=== PATIENT | female | born 1995 | race Caucasian/White ===

== ENCOUNTER 2019-05-08 14:23 | Observation (INO) | payer OTHER ==
[~2019-05-08] VITALS: Ht 160 cm; Wt 91.6 kg
[2019-05-08 14:32] VITALS: BP 110/62
--- NOTE | 2019-05-08 14:44 | NUR ---
PATIENT TRANSFERRED TO OB.
[2019-05-08 17:59] VITALS: BP 125/68
[2019-05-08] MEDS ORDERED: PREN-380 PO (18:02)
== END 2019-05-08 18:15 | disposition home or self-care (01) ==
LOC: MED 14:23 → MLD 14:27
PROVIDERS: ADMIT Obstetrics & Gynecology; ATTEND Obstetrics & Gynecology
DX: O36.8130 Decreased fetal movements, third trimester, not applicable or unspecified (principal); Z3A.28 28 weeks gestation of pregnancy
CPT/HCPCS: 76819; 99281; G0378; Q0092; 81000

== ENCOUNTER 2019-05-31 17:30 | Observation (INO) | payer OTHER ==
[~2019-05-31] VITALS: Ht 160 cm; Wt 93.4 kg
[~2019-05-31 17:30] MED LIST: PREN-380 PO
[2019-05-31 17:35] VITALS: BP 120/73
--- NOTE | 2019-05-31 17:42 | NUR ---
PT TAKEN VIA W/C TO L&D. REPORT GIVEN TO L&D NURSE.
[2019-05-31 18:29] VITALS: BP 112/55
[2019-05-31] MEDS ORDERED: BETAMETH ACET/BETAMETH NA PH 30 MG/5 ML VIAL IM SCH (20:00)
[2019-05-31] MEDS ORDERED: BETAMETH ACET/BETAMETH NA PH 30 MG/5 ML VIAL IM ONE (20:23)
[2019-05-31 20:40] LABS: APPEARANCE,URINE HAZY (CLEAR); BILIRUBIN,URINE NEGATIVE (NEGATIVE); BLOOD, URINE 3+ (NEGATIVE); COLOR,URINE YELLOW (YELLOW); LEUKOCYTE ESTERASE ,URINE 3+ (NEGATIVE); NITRITE, URINE NEGATIVE (NEGATIVE); UGLUCOSE NEGATIVE (NEGATIVE)
[2019-05-31 20:47] LABS: WBC,URINE 60-80 /HPF (0-5)
[2019-05-31 21:16] LABS: BASOPHILS % (AUTO) 0.3 % (0.0-2.0); EOSINOPHILS # (AUTO) 0.1 K/uL (0-0.4); EOSINOPHILS % (AUTO) 0.7 % (0.0-4.0); HEMATOCRIT 34.1 % (36-48); HEMOGLOBIN 11.2 g/dL (12.0-16.0); LYMPHOCYTES # (AUTO) 2.1 K/uL (2.5-16.5); LYMPHOCYTES % (AUTO) 21.5 % (20.5-51.1); MEAN CORPUSCULAR HEMOGLOBIN 28 pg (27-31); MEAN CORPUSCULAR HGB CONC 33 g/dL (33-37); MEAN CORPUSCULAR VOLUME 86.5 fL (80-94); MONOCYTES # (AUTO) 0.8 K/uL (0.8-1.0); MONOCYTES % (AUTO) 8.2 % (1.7-9.3); NEUTROPHILS # (AUTO) 6.8 K/uL (1.8-7.7); NEUTROPHILS % (AUTO) 69.3 % (42.2-75.2); PLATELET COUNT (AUTO) 235 K/uL (140-450); RED BLOOD CELL COUNT(AUTO) 3.94 MIL/uL (4.20-5.40); WHITE BLOOD COUNT (AUTO) 9.8 K/uL (4.8-10.8)
[2019-05-31 21:31] LABS: POTASSIUM 3.4 mmol/L (3.5-5.1)
[2019-05-31 21:32] LABS: CARBON DIOXIDE 23.4 mmol/L (21-32)
[2019-05-31 21:33] LABS: TOTAL BILIRUBIN 0.2 mg/dL (0.0-1.0)
[2019-05-31 21:34] LABS: ALBUMIN 2.3 g/dL (3.4-5.0)
[2019-05-31 21:35] LABS: CREATININE 0.5 mg/dL (0.6-1.3)
[2019-06-01] MEDS ORDERED: cefTRIAXone 1,000 MG in LIDOCAINE MPF 1% - 5 mL VIAL 2.1 ML IM SCH (10:30)
[2019-06-01] MEDS ORDERED: BETAMETH ACET/BETAMETH NA PH 30 MG/5 ML VIAL IM ONE (20:10)
== END 2019-06-01 20:30 | disposition home or self-care (01) ==
LOC: MED 17:30 → MLD 17:49 → INTOOBSV 17:49 → MFCC 20:00
PROVIDERS: ADMIT Obstetrics & Gynecology; ATTEND Obstetrics & Gynecology
DX: O26.893 Other specified pregnancy related conditions, third trimester (principal); R10.2 Pelvic and perineal pain; O23.43 Unspecified infection of urinary tract in pregnancy, third trimester; Z3A.32 32 weeks gestation of pregnancy
CPT/HCPCS: 36415; 80053; 81001; 85025; 86886; 86900; 86901; 87086; 96372; 99281; G0378; J0696; J0702; J2001

== ENCOUNTER 2019-07-14 14:46 | Observation (INO) | payer OTHER ==
[~2019-07-14] VITALS: Ht 157.5 cm; Wt 93.4 kg
[2019-07-14 15:56] LABS: BILIRUBIN,URINE NEGATIVE (NEGATIVE); BLOOD, URINE TRACE-I (NEGATIVE); COLOR,URINE YELLOW (YELLOW); LEUKOCYTE ESTERASE ,URINE 3+ (NEGATIVE); NITRITE, URINE NEGATIVE (NEGATIVE); PH,URINE 6.5 (5.0-9.0); UGLUCOSE NEGATIVE (NEGATIVE)
[2019-07-14 16:00] LABS: APPEARANCE,URINE HAZY (CLEAR)
[2019-07-14 16:20] VITALS: BP 106/59
[2019-07-14 17:29] LABS: RBC,URINE 0-5 /HPF (0-5)
== END 2019-07-14 17:25 | disposition home or self-care (01) ==
LOC: MLD 14:46
PROVIDERS: ADMIT Obstetrics & Gynecology; ATTEND Obstetrics & Gynecology
DX: O26.893 Other specified pregnancy related conditions, third trimester (principal); R10.2 Pelvic and perineal pain; Z3A.38 38 weeks gestation of pregnancy
CPT/HCPCS: 81001; 87086; G0378; 99284

== ENCOUNTER 2019-07-16 23:17 | Inpatient (IN) | payer OTHER ==
[~2019-07-16] VITALS: Ht 157.5 cm; Wt 93.4 kg
[2019-07-17] MEDS ORDERED: OXYTOCIN 10 UNITS/ML VIAL ONE (01:10)
[2019-07-17] MEDS ORDERED: LACTATED RINGERS 1,000 ML IV SCH (02:31)
[2019-07-17] MEDS ORDERED: CARBOPROST 250 MCG/ML AMP IM PRN ×2 (02:35→20:00)
[2019-07-17] MEDS ORDERED: OXYTOCIN 10 UNITS/ML VIAL IM SCH (02:35)
[2019-07-17] MEDS ORDERED: NALBUPHINE 10 MG/ML AMP IVP PRN (02:35)
[2019-07-17] MEDS ORDERED: METHYLERGONOVINE 0.2 MG/ML AMP IM PRN (02:35)
[2019-07-17 02:54] LABS: BASOPHILS # (AUTO) 0.1 K/uL (0.00-0.22); BASOPHILS % (AUTO) 0.5 % (0.0-2.0); EOSINOPHILS # (AUTO) 0.1 K/uL (0-0.4); EOSINOPHILS % (AUTO) 0.6 % (0.0-4.0); HEMATOCRIT 36.6 % (36-48); HEMOGLOBIN 11.8 g/dL (12.0-16.0); LYMPHOCYTES # (AUTO) 2.8 K/uL (2.5-16.5); LYMPHOCYTES % (AUTO) 19.8 % (20.5-51.1); MEAN CORPUSCULAR HEMOGLOBIN 28 pg (27-31); MEAN CORPUSCULAR HGB CONC 32 g/dL (33-37); MEAN CORPUSCULAR VOLUME 85.8 fL (80-94); MONOCYTES # (AUTO) 0.8 K/uL (0.8-1.0); NEUTROPHILS # (AUTO) 10.3 K/uL (1.8-7.7); NEUTROPHILS % (AUTO) 73.1 % (42.2-75.2); PLATELET COUNT (AUTO) 273 K/uL (140-450); RED BLOOD CELL COUNT(AUTO) 4.27 MIL/uL (4.20-5.40); RED CELL DISTRIBUTION WIDTH 14.6 % (11.6-13.7); WHITE BLOOD COUNT (AUTO) 14.1 K/uL (4.8-10.8)
[2019-07-17 04:25] LABS: APPEARANCE,URINE CLEAR (CLEAR); BILIRUBIN,URINE NEGATIVE (NEGATIVE); BLOOD, URINE NEGATIVE (NEGATIVE); COLOR,URINE YELLOW (YELLOW); LEUKOCYTE ESTERASE ,URINE 1+ (NEGATIVE); NITRITE, URINE NEGATIVE (NEGATIVE); UGLUCOSE NEGATIVE (NEGATIVE)
[2019-07-17 06:11] LABS: RBC,URINE 0-5 /HPF (0-5)
--- NOTE | 2019-07-17 08:31 | NUR ---
PATIENT HAS BEEN SCREENED AND CATEGORIZED LOW NUTRITION RISK. PATIENT WILL BE SEEN WITHIN 7 DAYS OF ADMISSION. 07/23/[address]
[2019-07-17] MEDS ORDERED: OXYTOCIN 20 UNITS in LACTATED RINGERS 1,000 ML IV SCH (17:20)
[2019-07-17] MEDS ORDERED: OXYTOCIN 20 UNITS/LR PREMIX 1,000 ML IV ONE (17:22)
[2019-07-17] MEDS ORDERED: NALBUPHINE 10 MG/ML AMP ONE (17:56)
[2019-07-17] MEDS ORDERED: METHYLERGONOVINE 0.2 MG/ML AMP ONE (17:57)
[2019-07-17] MEDS ORDERED: LIDOCAINE 1% 500 MG/50 ML VIAL ONE (18:32)
[2019-07-17] MEDS ORDERED: METHYLERGONOVINE 0.2 MG TAB PO PRN (20:00)
[2019-07-18] MEDS ORDERED: TEMAZEPAM 15 MG CAP PO PRN (02:15)
[2019-07-18] MEDS ORDERED: oxyCODONE/APAP 5/325 MG 1 TAB TAB PO PRN (02:15)
[2019-07-18] MEDS ORDERED: BENZOCAINE/MENTHOL 20%-0.5% 60 GM CAN TP PRN (02:15)
[2019-07-18] MEDS ORDERED: OXYTOCIN 10 UNITS/ML VIAL IM PRN (02:15)
[2019-07-18] MEDS ORDERED: MEASLES, MUMPS, AND RUBELLA 1 VIAL SQVAC PRN (02:15)
[2019-07-18] MEDS: HYDROcodone/APAP 5/325 MG 1 TAB TAB PO PRN ×4 (02:29→22:16)
[2019-07-18 07:32] LABS: HEMATOCRIT 36.7 % (36-48); HEMOGLOBIN 11.9 g/dL (12.0-16.0)
[2019-07-18] MEDS ORDERED: INFLUENZA VACCINE QUAD 0.5 ML SYR IMVAC PRN (08:00)
[2019-07-18] MEDS ORDERED: DOCUSATE SOD/SENNA 50/8.6 MG 1 TAB PO SCH ×2 (21:00)
[2019-07-19] MEDS: HYDROcodone/APAP 5/325 MG 1 TAB TAB PO PRN (08:13)
[2019-07-19] MEDS ORDERED: DOCUSATE SOD/SENNA 50/8.6 MG 1 TAB PO SCH (21:00)
== END 2019-07-19 14:04 | disposition home or self-care (01) | DRG 560 ==
LOC: MLD 23:17 → OBSVTOIN 07-17 02:31 → MFCC 07-17 21:20
PROVIDERS: ADMIT Obstetrics & Gynecology; ATTEND Obstetrics & Gynecology
PROC: 10E0XZZ Delivery of Products of Conception, External Approach (ICD-10-PCS; principal; 2019-07-17)
PROC: 0KQM0ZZ Repair Perineum Muscle, Open Approach (ICD-10-PCS; 2019-07-17)
PROC: 10907ZC Drainage of Amniotic Fluid, Therapeutic from Products of Conception, Via Natural or Artificial Opening (ICD-10-PCS; 2019-07-17)
PROC: 3E0234Z Introduction of Serum, Toxoid and Vaccine into Muscle, Percutaneous Approach (ICD-10-PCS; 2019-07-18)
PROC: 3E02340 Introduction of Influenza Vaccine into Muscle, Percutaneous Approach (ICD-10-PCS; 2019-07-18)
PROC: 3E0134Z Introduction of Serum, Toxoid and Vaccine into Subcutaneous Tissue, Percutaneous Approach (ICD-10-PCS; 2019-07-18)
DX: O70.1 Second degree perineal laceration during delivery (principal); Z23 Encounter for immunization; Z37.0 Single live birth; Z3A.38 38 weeks gestation of pregnancy
CPT/HCPCS: G0378 ×3; 36415; 59409; 81001; 85018; 85025; 86592; 86886; 86900; 86901; 87086; 90715; J2001; J2210; J2300; J2590; J7120